=== PATIENT | female | born 1930 | race Caucasian/White ===

== ENCOUNTER 2017-05-28 13:23 | Inpatient (IN) ==
[2017-05-28 16:37] LABS: MANUAL DIFF NEEDED? NO
[2017-05-28 16:39] LABS: BASO% 0.2 % (0.0-0.8); HEMATOCRIT 42.8 % (37.0-47.0); HEMOGLOBIN 14.5 g/dL (12.0-16.0); LYMPH# 1.26 X1000 (1.2-3.4); LYMPH% 15.6 % (20.5-51.1); MCHC 33.9 g/dL (33-37); MCV 88.6 FL (81-99); MONO# 0.56 X1000 (0.11-0.59); MONO% 6.9 % (1.7-9.3); MPV 10.8 FL (7.4-10.4); NEUT% 77.3 % (42.2-75.2); PLT 187 X1000 (130-400); RBC 4.83 XMIL (4.2-5.4)
[2017-05-28 16:55] LABS: ALBUMIN 3.6 g/dL (3.5-5.0); CALCIUM 8.9 mg/dL (8.8-10.2); MAGNESIUM 1.6 mg/dL (1.5-2.7); POTASSIUM 4.2 mmol/L (3.5-5.1); TOTAL BILIRUBIN 0.84 mg/dL (0.20-1.00); TOTAL PROTEIN 6.5 g/dL (6.3-8.3)
[2017-05-28 17:00] LABS: INR 1.06; PROTIME 11.2 Seconds (9.2-11.7)
[2017-05-28 17:13] LABS: CK INDEX 1.1 (0.0-2.5); CK-MB 3.9 ng/mL (0.0-5.0)
[2017-05-28 17:48] LABS: ALLEN TEST YES; BE 1.5 mmoll (-3.0-3.0); BLOOD TYPE ARTERIAL; DRAW SITE L RADIAL; METHB 1.5 % (0.0-1.5); MODALITY ROOM AIR; O2(CT) 19.2 mL/dL (15.0-23.0); PCO2(98.6) 34 mmHg (35-45); PO2(98.6) 57 mmHg (60-100); SAMPLE BLOOD; SAO2 94.8 % (95.0-100.0); THB 14.9 g/dL (11.5-17.4); pH(98.6) 7.47 (7.35-7.45)
[2017-05-28] MEDS: NS 1,000 ML IV SCH (18:38)
[2017-05-28 19:07] LABS: URINE MICRO REVIEW NEEDED? NO; URINE SOURCE CATH
[2017-05-28 19:10] LABS: BILIRUBIN URINE NEGATIVE (NEGATIVE); BLOOD URINE SMALL (NEGATIVE); COLOR YELLOW; GLUCOSE URINE NEGATIVE (NEGATIVE); LEUKOCYTES URINE TRACE (NEGATIVE); NITRITE URINE NEGATIVE (NEGATIVE); PROTEIN URINE TRACE mg/dL (NEGATIVE); TURBIDITY URINE CLEAR (CLEAR); UR EPITHELIAL CELLS <10 /HPF (<10); URINE BACTERIA NEGATIVE /HPF; URINE CULTURE NEEDED? YES; URINE RBC <10 /HPF (<10); UROBILINOGEN URINE NORMAL (NORMAL)
[2017-05-28 19:15] LABS: SP GRAVITY URINE 1.015
[2017-05-29 01:12] LABS: CK INDEX 0.8 (0.0-2.5); CK-MB 3.93 ng/mL (0.0-5.0)
[2017-05-29 07:36] LABS: HEMATOCRIT 39.2 % (37.0-47.0); HEMOGLOBIN 13.2 g/dL (12.0-16.0); MCH 30.2 PG (27-31); MCHC 33.7 g/dL (33-37); MCV 89.7 FL (81-99); MPV 10.7 FL (7.4-10.4); RBC 4.37 XMIL (4.2-5.4)
[2017-05-29 08:19] LABS: AGAP 12; BUN 27 mg/dL (8-22); CALCIUM 8.3 mg/dL (8.8-10.2); CHLORIDE 103 mmol/L (98-107); COSMO 289; HDL 30 mg/dL (45-65); LDL 110 mg/dL; POTASSIUM 4.3 mmol/L (3.5-5.1); SODIUM 139 mmol/L (136-145); TCO2 24 mmol/L (25-35); TRIGLYCERIDES 170 mg/dL (35-135); VLDL 34 mg/dL
[2017-05-29 10:00] LABS: CK INDEX 0.6 (0.0-2.5); CK-MB 2.9 ng/mL (0.0-5.0)
[2017-05-29 15:18] LABS: INR 1.04; PROTIME 10.9 Seconds (9.2-11.7)
[2017-05-29] MEDS: NS 1,000 ML IV SCH (22:13)
[2017-05-30 05:39] LABS: HEMATOCRIT 38.9 % (37.0-47.0); HEMOGLOBIN 12.8 g/dL (12.0-16.0); MCH 30.5 PG (27-31); MCHC 32.9 g/dL (33-37); MCV 92.8 FL (81-99); MPV 10.8 FL (7.4-10.4); RBC 4.19 XMIL (4.2-5.4)
[2017-05-30 06:29] LABS: AGAP 13; BUN 29 mg/dL (8-22); CALCIUM 8.1 mg/dL (8.8-10.2); CHLORIDE 107 mmol/L (98-107); COSMO 296; POTASSIUM 4.1 mmol/L (3.5-5.1); SODIUM 144 mmol/L (136-145); TCO2 24 mmol/L (25-35)
[2017-05-30] MEDS: NS 1,000 ML IV SCH ×3 (10:21→22:57)
[2017-05-30] MEDS ORDERED: CATAPRES PO PRN (17:15)
[2017-05-30] MEDS ORDERED: TYLENOL PO PRN (17:15)
[2017-05-31 05:49] LABS: HEMATOCRIT 35.9 % (37.0-47.0); HEMOGLOBIN 11.6 g/dL (12.0-16.0); MCH 30.2 PG (27-31); MCHC 32.3 g/dL (33-37); MCV 93.5 FL (81-99); MPV 10.8 FL (7.4-10.4); RBC 3.84 XMIL (4.2-5.4)
[2017-05-31 06:36] LABS: AGAP 13; BUN 30 mg/dL (8-22); CALCIUM 8.3 mg/dL (8.8-10.2); CHLORIDE 110 mmol/L (98-107); COSMO 295; SODIUM 144 mmol/L (136-145); TCO2 21 mmol/L (25-35)
[2017-05-31] MEDS: CLINIMIX E 4.25%-5% SOLUTION 1,000 ML IV SCH ×2 (09:30→17:43)
[2017-05-31] MEDS: PRINIVIL PO SCH ×3 (09:58→21:34)
[2017-06-01] MEDS: CLINIMIX E 4.25%-5% SOLUTION 1,000 ML IV SCH ×3 (04:58→23:43)
[2017-06-01] MEDS: PRINIVIL PO SCH ×2 (08:06→21:29)
[2017-06-01] MEDS: TYLENOL PR PRN (22:09)
[2017-06-02] MEDS: PRINIVIL PO SCH ×2 (08:38→21:37)
[2017-06-02] MEDS: CLINIMIX E 4.25%-5% SOLUTION 1,000 ML IV SCH (21:33)
[2017-06-03] MEDS ORDERED: APRESOLINE IV PRN ×2 (01:38→01:57)
[2017-06-03] MEDS: CLINIMIX E 4.25%-5% SOLUTION 1,000 ML IV SCH (08:44)
[2017-06-03] MEDS: PRINIVIL PO SCH ×2 (08:47→22:23)
[2017-06-04] MEDS: CLINIMIX E 4.25%-5% SOLUTION 1,000 ML IV SCH ×3 (01:27→22:00)
[2017-06-04] MEDS: PRINIVIL PO SCH ×2 (09:36→22:00)
[2017-06-04] MEDS: TYLENOL PR PRN (22:11)
[2017-06-05] MEDS: PRINIVIL PO SCH ×2 (08:11→20:45)
[2017-06-05] MEDS: CLINIMIX E 4.25%-5% SOLUTION 1,000 ML IV SCH ×2 (08:15→18:19)
[2017-06-06] MEDS: CLINIMIX E 4.25%-5% SOLUTION 1,000 ML IV SCH ×3 (01:39→12:40)
[2017-06-06] MEDS: APRESOLINE PO SCH ×2 (08:55→20:55)
[2017-06-06] MEDS: PRINIVIL PO SCH (08:55)
[2017-06-06] MEDS: TYLENOL PR PRN (16:43)
[2017-06-07] MEDS: CLINIMIX E 4.25%-5% SOLUTION 1,000 ML IV SCH ×3 (00:25→16:00)
[2017-06-07 06:10] LABS: MANUAL DIFF NEEDED? NO
[2017-06-07 06:16] LABS: BASO% 0.4 % (0.0-0.8); EOS# 0.28 X1000 (0.0-0.7); EOS% 5.2 % (0.0-10.0); HEMATOCRIT 35.8 % (37.0-47.0); HEMOGLOBIN 12.1 g/dL (12.0-16.0); LYMPH# 1.43 X1000 (1.2-3.4); LYMPH% 26.4 % (20.5-51.1); MCH 30.1 PG (27-31); MCHC 33.8 g/dL (33-37); MCV 89.1 FL (81-99); MONO% 7.4 % (1.7-9.3); MPV 11.6 FL (7.4-10.4); NEUT% 60.6 % (42.2-75.2); PLT 172 X1000 (130-400); RBC 4.02 XMIL (4.2-5.4)
[2017-06-07 06:31] LABS: AGAP 12; ALBUMIN 2.8 g/dL (3.5-5.0); ALKALINE PHOSPHATASE 53 U/L (32-104); BUN 35 mg/dL (8-22); CALCIUM 8.6 mg/dL (8.8-10.2); CHLORIDE 100 mmol/L (98-107); COSMO 288; GOT 38 U/L (10-30); GPT 54 U/L (10-36); POTASSIUM 4.8 mmol/L (3.5-5.1); SODIUM 135 mmol/L (136-145); TCO2 23 mmol/L (25-35); TOTAL BILIRUBIN 0.66 mg/dL (0.20-1.00); TOTAL PROTEIN 5.6 g/dL (6.3-8.3)
[2017-06-07] MEDS: APRESOLINE PO SCH ×4 (10:26→17:04)
[2017-06-07] MEDS: PRINIVIL PO SCH (10:26)
[2017-06-07 14:00] LABS: URINE MICRO REVIEW NEEDED? NO; URINE SOURCE CATH
[2017-06-07 14:24] LABS: BILIRUBIN URINE NEGATIVE (NEGATIVE); BLOOD URINE NEGATIVE (NEGATIVE); COLOR ORANGE; GLUCOSE URINE 500 mg/dL (NEGATIVE); LEUKOCYTES URINE LARGE (NEGATIVE); NITRITE URINE NEGATIVE (NEGATIVE); PROTEIN URINE TRACE mg/dL (NEGATIVE); SP GRAVITY URINE 1.017; TURBIDITY URINE HAZY (CLEAR); UROBILINOGEN URINE NORMAL (NORMAL)
[2017-06-07 14:25] LABS: UR EPITHELIAL CELLS <10 /HPF (<10); URINE BACTERIA 4+ /HPF; URINE RBC <10 /HPF (<10); URINE WBC TNTC /HPF (<10)
[2017-06-07] MEDS: NS 1,000 ML IV SCH (14:39)
[2017-06-07] MEDS: ROCEPHIN 1 GM in NS 50 ML IV SCH (16:00)
[2017-06-07] MEDS ORDERED: HUMULIN R SUBQ SCH (21:00)
[2017-06-08] MEDS: HUMULIN R SUBQ SCH ×6 (00:51→23:19)
[2017-06-08] MEDS: NS 1,000 ML IV SCH ×3 (02:27→23:18)
[2017-06-08 06:23] LABS: AGAP 14; BUN 35 mg/dL (8-22); CALCIUM 8.6 mg/dL (8.8-10.2); CHLORIDE 101 mmol/L (98-107); COSMO 284; POTASSIUM 4.3 mmol/L (3.5-5.1); SODIUM 137 mmol/L (136-145); TCO2 22 mmol/L (25-35)
[2017-06-08] MEDS: APRESOLINE PO SCH ×5 (09:00→16:45)
[2017-06-08] MEDS: PRINIVIL PO SCH (09:00)
[2017-06-08] MEDS: NORVASC PO SCH ×2 (11:00→23:19)
[2017-06-08] MEDS: ROCEPHIN 1 GM in NS 50 ML IV SCH (14:35)
[2017-06-08] MEDS: CLINIMIX E 4.25%-5% SOLUTION 1,000 ML IV SCH (16:30)
[2017-06-08] MEDS: KEFLEX PO SCH (23:19)
[2017-06-09 05:54] LABS: AGAP 13; BUN 24 mg/dL (8-22); CALCIUM 8.5 mg/dL (8.8-10.2); CHLORIDE 101 mmol/L (98-107); COSMO 283; POTASSIUM 4.7 mmol/L (3.5-5.1); SODIUM 136 mmol/L (136-145); TCO2 22 mmol/L (25-35)
[2017-06-09] MEDS: HUMULIN R SUBQ SCH ×2 (06:22→14:19)
[2017-06-09] MEDS: NS 1,000 ML IV SCH (08:41)
[2017-06-09 11:30] VITALS: BP 133/51
[2017-06-09] MEDS: KEFLEX PO SCH (11:58)
[2017-06-09] MEDS: APRESOLINE PO SCH ×2 (11:59→14:44)
[2017-06-09] MEDS: PRINIVIL PO SCH (11:59)
[2017-06-09] MEDS: NORVASC PO SCH (11:59)
== END 2017-06-09 15:50 ==
LOC: 4N → SUATTDRO 13:23 → OBSVTOIN 13:23 → 4N 13:36
PROVIDERS: ATTEND Internal Medicine